=== PATIENT | male | born 1970 | race Caucasian/White ===

== ENCOUNTER 2017-02-13 15:39 | Emergency (ER) | payer OTHER ==
[2017-02-13 15:51] VITALS: BP 179/90; PULSE 75; TEMP 99.5; BMI 25.8
--- NOTE | 2017-02-13 15:57 | PDOC ---
History of Present Illness - General History Source: Patient Exam Limitations: No Limitations (dissected Sunday or) <Amber Lim - Last Filed: 02/13/17 16:50> - General History Source: Patient Exam Limitations: No Limitations - History of Present Illness Initial Comments: 02/13/17 17:01 The patient is 46-year-old male, with a past medical history of BPH, who presents to the ED s/p fall 5 days ago. Patient states he fell out of a truck while working and hyperextended his right arm. He is now complaining of right shoulder pain and right elbow pain. He denies taking anything for pain today. He denies having any other injuries or symptoms. <Pamela Sharpe - Last Filed: 02/13/17 17:11> - General Chief Complaint: Injury Stated Complaint: RT SHOULDER, JESSICA INJURY Time Seen by Provider: 02/13/17 15:50 Past History - Past Medical History COPD: No Disorders: Yes (BPH) - Immunization History TDAP Vaccination: Yes (11/11/15) - Suicide/Smoking/Psychosocial Hx Smoking Status: Yes Smoking History: Current every day smoker Have you smoked in the past 12 months: Yes Number of Cigarettes Smoked Daily: 2 Information on smoking cessation initiated: Yes 'Breaking Loose' booklet given: 02/13/17 Hx Alcohol Use: No Drug/Substance Use Hx: No Substance Use Type: None <Amber Lim - Last Filed: 02/13/17 16:50> <Pamela Sharpe - Last Filed: 02/13/17 17:11> - Past Medical History Allergies/Adverse Reactions: Allergies Allergy/AdvReac Type Severity Reaction Status Date / Time No Known Allergies Allergy Verified 02/13/17 15:41 Home Medications: Ambulatory Orders Alfuzosin HCl [Alfuzosin HCl ER] 1 tab PO HS 11/11/15 Ibuprofen [Motrin -] 600 mg PO TID #90 tablet 02/13/17 Review of Systems - Review of Systems Able to Perform ROS?: Yes Comments:: 02/13/17 17:03 GENERAL/CONSTITUTIONAL: No fever or chills. No weakness. HEAD, EYES, EARS, NOSE AND THROAT: No change in vision. No ear pain or discharge. No sore throat. CARDIOVASCULAR: No chest pain or shortness of breath. RESPIRATORY: No cough, wheezing, or hemoptysis. GASTROINTESTINAL: No nausea, vomiting, diarrhea or constipation. GENITOURINARY: No dysuria, frequency, or change in urination. MUSCULOSKELETAL: (+)right arm and elbow pain. No joint swelling or pain. No neck or back pain. SKIN: No rash NEUROLOGIC: No headache, vertigo, loss of consciousness, or change in strength/ sensation. ENDOCRINE: No increased thirst. No abnormal weight change. HEMATOLOGIC/LYMPHATIC: No anemia, easy bleeding, or history of blood clots. ALLERGIC/IMMUNOLOGIC: No hives or skin allergy. <Pamela Sharpe - Last Filed: 02/13/17 17:11> *Physical Exam - Vital Signs Last Vital Signs Temp Pulse Resp BP Pulse Ox 99.5 F 75 20 179/90 100 02/13/17 15:40 02/13/17 15:40 02/13/17 15:40 02/13/17 15:40 02/13/17 15:40 <Amber Lim - Last Filed: 02/13/17 16:50> - Vital Signs Last Vital Signs Temp Pulse Resp BP Pulse Ox 99.5 F 75 20 179/90 100 02/13/17 15:40 02/13/17 15:40 02/13/17 15:40 02/13/17 15:40 02/13/17 15:40 - Physical Exam Comments: 02/13/17 17:07 GENERAL: Awake, alert, and fully oriented, in no acute distress HEAD: No signs of trauma EYES: PERRLA, EOMI, sclera anicteric, conjunctiva clear ENT: Auricles normal inspection, nares patent, oropharynx clear without exudates. Moist mucosa. No midline spinal tenderness NECK: Normal ROM, supple, no lymphadenopathy, JVD, or masses LUNGS: Breath sounds equal, clear to auscultation bilaterally. No wheezes, and no crackles HEART: Regular rate and rhythm, normal S1 and S2, no murmurs, rubs or gallops ABDOMEN: Soft, nontender, normoactive bowel sounds. No guarding, no rebound. No masses MSK: (+)Anterior shoulder tenderness. No deformity, no ecchymosis. Decreased extension of right arm to 90 degrees. Can adduct arm to 110 degrees. There is tenderness to palpation of the right elbow. No ecchymosis, no swelling. Pt has full range of motion of the elbow. No midline spinal tenderness. EXTREMITIES: Normal range of motion, no edema. No clubbing or cyanosis. No cords , erythema, or tenderness NEUROLOGICAL: 5/5 motor strength. Gcs 15. Gait is normal speech is clear. SKIN: Warm, Dry, normal turgor, no rashes or lesions noted. <Pamela Sharpe - Last Filed: 02/13/17 17:11> ED Treatment Course - Medications Given in the ED: ED Medications Discontinued Medications Generic Name Dose Route Start Last Admin Trade Name Brady PRN Reason Stop Dose Admin Ibuprofen 600 mg 02/13/17 15:58 02/13/17 16:41 Motrin - PO 02/13/17 15:59 600 mg ONCE ONE Administration <Pamela Sharpe - Last Filed: 02/13/17 17:11> Medical Decision Making - Medical Decision Making 02/13/17 15:54 46-year-old male with a past medical history other than the pH here status post fall 5 days ago. Patient states he fell out of a truck hyperextended his right arm complaining of right shoulder pain. Did not take anything for pain prior to arrival pain is worse with abduction and internal rotation no associated weakness or numbness does also complain of mild elbow pain. No ecchymosis no deformity denies head trauma or LOC no neck or back pain Differential diagnosis: Shoulder rotator cuff injury fracture less likely before meals joint injury plan pain control x-ray of the shoulder and elbow likely outpatient orthopedic follow-up and Motrin for pain <Amber Lim - Last Filed: 02/13/17 16:50> *DC/Admit/Observation/Transfer <Amber Lim - Last Filed: 02/13/17 16:50> - Attestations Scribe Attestion: 02/13/17 17:11 Documentation prepared by Pamela Sharpe, acting as medical science liaison for Amber Lim MD. <Pamela Sharpe - Last Filed: 02/13/17 17:11> Diagnosis at time of Disposition: Shoulder injury - Discharge Dispostion Disposition: HOME Condition at time of disposition: Improved - Prescriptions Prescriptions: Ibuprofen [Motrin -] 600 mg PO TID #90 tablet - Referrals Referrals: Pritesh Carmichael MD [Staff Physician] - - Patient Instructions Printed Discharge Instructions: DI for Rotator Cuff Injury, DI for Shoulder Sprain Additional Instructions: you should follow-up with an orthopedist for persistent pain beyond 2 weeks. See referral information for Dr. Carmichael, and call to schedule. You can take ibuprofen 600 mg every 8 hours as needed for pain, take with food. Return for any numbness weakness or any concerns. Your x-rays were negative for any bony injuries, injury is likely due to a tendon or ligamentous injury in your shoulder
[2017-02-13] MEDS ORDERED: IBUPROFEN 600 MG TABLET (FP) PO ONE ×2 (15:58→16:38)
== END 2017-02-13 16:55 | disposition home or self-care (01) ==
LOC: FER 15:39
DX: S49.91XA Unspecified injury of right shoulder and upper arm, initial encounter (principal); V87.8XXA Person injured in other specified noncollision transport accidents involving motor vehicle (traffic), initial encounter; Y93.89 Activity, other specified; Y92.9 Unspecified place or not applicable; Y99.0 Civilian activity done for income or pay; F17.210 Nicotine dependence, cigarettes, uncomplicated; N40.0 Benign prostatic hyperplasia without lower urinary tract symptoms
CPT/HCPCS: 73030-TC-RT; 73070-TC-RT; 99282-25

== ENCOUNTER 2018-11-26 10:31 | Emergency (ER) | payer OTHER ==
[2018-11-26 10:54] VITALS: BP 132/86; PULSE 73; TEMP 98.2; BMI 25.8
[2018-11-26] MEDS ORDERED: KETOROLAC TROMETHAMINE 60 MG/2 ML VIAL IM ONE (12:27)
--- NOTE | 2018-11-26 12:33 | PDOC ---
History of Present Illness - General Chief Complaint: Back Pain Stated Complaint: BACK INJURY AT WORK Time Seen by Provider: 11/26/18 12:03 History Source: Patient - History of Present Illness Occurred: reports: this morning Pain Location: reports: back Past History - Past Medical History Allergies/Adverse Reactions: Allergies Allergy/AdvReac Type Severity Reaction Status Date / Time No Known Allergies Allergy Verified 11/26/18 10:54 Home Medications: Ambulatory Orders Alfuzosin HCl [Alfuzosin HCl ER] 1 tab PO HS 11/11/15 Ibuprofen [Motrin -] 600 mg PO TID #90 tablet 02/13/17 Cyclobenzaprine HCl [Flexeril 10 mg] 10 mg PO HS #9 tablet 11/26/18 Ibuprofen [Motrin -] 600 mg PO QID #28 tablet 11/26/18 COPD: No Disorders: Yes (BPH) - Immunization History TDAP Vaccination: Yes (11/11/15) Immunization Up to Date: Yes - Suicide/Smoking/Psychosocial Hx Smoking Status: Yes Smoking History: Current every day smoker Have you smoked in the past 12 months: No Number of Cigarettes Smoked Daily: 6 Information on smoking cessation initiated: Yes 'Breaking Loose' booklet given: 02/13/17 Hx Alcohol Use: No Drug/Substance Use Hx: No Substance Use Type: None Review of Systems - Review of Systems Constitutional: No: Chills, Fever : No: Burning, Dysuria, Discharge, Flank Pain, Hematuria Musculoskeletal: Yes: Back Pain Neurological: No: Numbness, Tingling, Weakness *Physical Exam - Vital Signs Last Vital Signs Temp Pulse Resp BP Pulse Ox 98.2 F 73 18 132/86 98 11/26/18 10:51 11/26/18 10:51 11/26/18 10:51 11/26/18 10:51 11/26/18 10:51 - Physical Exam General Appearance: Yes: Appropriately Dressed, Mild Distress HEENT: positive: Normal Voice Neck: positive: Supple Respiratory/Chest: negative: Respiratory Distress Gastrointestinal/Abdominal: positive: Soft. 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 No sensory changes Has had similar pain in the past, usually in the setting of heavy lifting per pt that usually improves w/ motrin but states his boss advised him to come to ED see exam M/l lower back strain vs spasm No red flags at this time Dose of toradol given here Dc w/ pain control -PMD f/u as needed *DC/Admit/Observation/Transfer Diagnosis at time of Disposition: Low back pain Qualifiers: Chronicity: acute Back pain laterality: bilateral Sciatica presence: without sciatica Qualified Code(s): M54.5 - Low back pain - Discharge Dispostion Disposition: HOME Condition at time of disposition: Good - Prescriptions Prescriptions: Cyclobenzaprine HCl [Flexeril 10 mg] 10 mg PO HS #9 tablet Ibuprofen [Motrin -] 600 mg PO QID #28 tablet - Referrals Referrals: Tatiana Hart MD [Primary Care Provider] - - Patient Instructions Printed Discharge Instructions: Low Back Pain - Post Discharge Activity Forms/Work/School Notes: Back to Work
[2018-11-26] MEDS ORDERED: KETOROLAC TROMETHAMINE 60 MG/2 ML VIAL ONE (12:34)
== END 2018-11-26 13:10 | disposition home or self-care (01) ==
LOC: JERFT 10:31
PROC: 3E0233Z Introduction of Anti-inflammatory into Muscle, Percutaneous Approach (ICD-10-PCS; principal; 2018-11-26)
DX: S39.012A Strain of muscle, fascia and tendon of lower back, initial encounter (principal); M62.830 Muscle spasm of back; X50.0XXA Overexertion from strenuous movement or load, initial encounter; Y93.89 Activity, other specified; Y92.69 Other specified industrial and construction area as the place of occurrence of the external cause; Y99.0 Civilian activity done for income or pay
CPT/HCPCS: 99282-25

== ENCOUNTER 2023-12-20 08:09 | Emergency (ER) | payer BC, OTHER ==
[2023-12-20 08:14] VITALS: BP 152/88; PULSE 87; RESP 20; TEMP 97.5; BMI 25.1
== END 2023-12-20 10:07 | disposition home or self-care (01) ==
LOC: JERFT 08:09
DX: M54.9 Dorsalgia, unspecified (principal); M25.522 Pain in left elbow; V43.52XA Car driver injured in collision with other type car in traffic accident, initial encounter; Y92.481 Parking lot as the place of occurrence of the external cause
CPT/HCPCS: 99283-25